=== PATIENT | male | born 1960 ===

== ENCOUNTER 2019-05-12 15:53 | Outpatient (REF) | payer MEDICARE, MEDICAID, SELFPAY ==
[2019-05-12 21:39] LABS: ALT 39 U/L (16-63); AST 16 U/L (15-37); Albumin 3.7 g/dL (3.4-5.0); Alkaline Phosphatase 135 U/L (46-116); Anion Gap 9.2 mmol/L (3-11); BUN 21 mg/dL (7-18); CO2 26.8 mmol/L (21.0-32.0); CREATININE 0.94 mg/dL (0.70-1.30); Calcium 9.1 mg/dL (8.5-10.1); Chloride 105 mmol/L (98-107); Glucose 123 mg/dL (70-100); Potassium 4.6 mmol/L (3.5-5.1); Sodium 141 mmol/L (136-145); Total Protein 7.9 g/dL (6.4-8.2)
== END 2019-05-12 16:13 ==
LOC: NCHCN 15:53
PROVIDERS: Visit Provider Family Medicine
DX: R73.09 Other abnormal glucose (principal); E87.6 Hypokalemia; I63.50 Cerebral infarction due to unspecified occlusion or stenosis of unspecified cerebral artery
CPT/HCPCS: 80053; 83036